=== PATIENT | female | born 1970 | race American Indian/Alaskan Native ===

== ENCOUNTER 2019-05-12 17:00 | Emergency (ER) | payer SELFPAY ==
--- NOTE | 2019-05-12 18:25 | XRay Report ---
CHEST PA AND LATERAL VIEWS INDICATION: Chest Pain. COMPARISON: None FINDINGS: Support devices: None Heart: Slightly enlarged with left ventricular configuration. Lungs/Pleura: No pulmonary edema or acute disease. No pleural fluid. IMPRESSION: 1. Mild cardiomegaly but no pulmonary edema or acute pulmonary disease. Signer Name: Quinn Mcbride MD Signed: 05/12/2019 6:21 PM Workstation Name: [id number]
[2019-05-12 18:29] LABS: Basophils % (Auto) 0.8 % (0.0-1.8); Eosinophils # (Auto) 0.1 K/mm3 (0.0-0.4); Eosinophils % (Auto) 1.9 % (0.0-4.3); Hematocrit 37.3 % (30.3-42.9); Hemoglobin 12.6 gm/dl (10.1-14.3); Lymphocytes # (Auto) 2.4 K/mm3 (1.2-5.4); Mean Corpuscular HGB Conc 34 % (30-34); Mean Corpuscular Volume 86 fl (79-97); Monocytes # (Auto) 0.6 K/mm3 (0.0-0.8); Monocytes % (Auto) 9.2 % (0.0-7.3); Platelet Count 288 K/mm3 (140-440); Red Blood Count 4.32 M/mm3 (3.65-5.03); Red Cell Distribution Width 13.7 % (13.2-15.2)
[2019-05-12 18:48] LABS: Alanine Aminotransferase 10 units/L (7-56); Albumin 4.1 g/dL (3.9-5); BUN/Creatinine Ratio 18; Blood Urea Nitrogen 9 mg/dL (7-17); Calcium 9.1 mg/dL (8.4-10.2); Hemolysis Index 14
--- NOTE | 2019-05-12 21:02 | Emergency Department Report ---
ED Chest Pain HPI - General Chief Complaint: Chest Pain Stated Complaint: CHEST PAIN Time Seen by Provider: 05/12/19 20:56 Source: patient Mode of arrival: Ambulatory Limitations: No Limitations - History of Present Illness Initial Comments: Patient is a 48-year-old female that presents emergency room with complaints of chest pain and abdominal pain. Patient states her chest pain started 2 days ago. Patient states the pain is unchanged. Patient states it is in her substernal region and nonradiating. Patient states the pain is an 8 out of 10. Patient states the pain is better with rest and worse with movement. Patient states the pain is unchanged with exertion. Patient denies shortness of breath. Patient denies diaphoresis. Patient also complains of abdominal pain. Patient states she is having right lower quadrant abdominal pain. Patient states the pain is a 10 out of 10. Patient states the pain is worse with movement and palpation. Patient states the pain is better with rest. Patient denies fever and chills. Patient denies nausea vomiting. MD Complaint: chest pain -: Sudden Pain Location: substernal Pain Radiation: none Severity scale (0 -10): 8 Quality: tightness Consistency: constant Improves With: rest Worsens With: movement re: denies: nausea, vomting, diaphoresis, dyspnea, sense of impending doom Other Symptoms: denies: cough, fever, syncope, rash, acid taste in mouth, leg swelling, palpitations, burping Treatments Prior to Arrival: none Aspirin use within the Past 7 Days: (0) No - Related Data On Oral Contraceptives: No Previous Rx's Medication Instructions Recorded Last Taken Type Docusate Sodium [Colace] 100 mg PO BID PRN #20 capsule 05/13/19 Unknown Rx Esomeprazole Magnesium [NexIUM] 40 mg PO QDAY 30 Days #30 05/13/19 Unknown Rx capsule. Allergies Allergy/AdvReac Type Severity Reaction Status Date / Time No Known Allergies Allergy Verified 05/12/19 17:37 Heart Score - HEART Score History: Slightly suspicious EKG: Normal Age: 45-65 Risk factors: No known risk factors Troponin: < normal limit HEART Score: 1 ED Review of Systems ROS: Stated complaint: CHEST PAIN Other details as noted in HPI Constitutional: denies: chills, fever Eyes: denies: eye pain, eye discharge, vision change ENT: denies: ear pain, throat pain Respiratory: denies: cough, shortness of breath, wheezing Cardiovascular: chest pain. denies: palpitations Endocrine: no symptoms reported Gastrointestinal: abdominal pain. denies: nausea, diarrhea Genitourinary: denies: urgency, dysuria, discharge Musculoskeletal: denies: back pain, joint swelling, arthralgia Skin: denies: rash, lesions Neurological: denies: headache, weakness, paresthesias Psychiatric: denies: anxiety, depression Hematological/Lymphatic: denies: easy bleeding, easy bruising ED Past Medical Hx - Past Medical History Previous Medical History?: No - Surgical History Past Surgical History?: No - Family History Family history: no significant - Social History Smoking Status: Never Smoker Substance Use Type: None - Medications Home Medications: Home Medications Medication Instructions Recorded Confirmed Last Taken Type Docusate Sodium [Colace] 100 mg PO BID PRN #20 capsule 05/13/19 Unknown Rx Esomeprazole Magnesium [NexIUM] 40 mg PO QDAY 30 Days #30 05/13/19 Unknown Rx capsule. ED Physical Exam - General Limitations: No Limitations General appearance: alert, in no apparent distress - Head Head exam: Present: atraumatic, normocephalic - Eye Eye exam: Present: normal appearance - ENT ENT exam: Present: mucous membranes moist - Neck Neck exam: Present: normal inspection - Respiratory Respiratory exam: Present: normal lung sounds bilaterally. Absent: respiratory distress - Cardiovascular Cardiovascular Exam: Present: regular rate, normal rhythm. Absent: systolic murmur, diastolic murmur, rubs, gallop - GI/Abdominal GI/Abdominal exam: Present: soft, tenderness (right lower quadrant tenderness), normal bowel sounds. Absent: distended - Extremities Exam Extremities exam: Present: normal inspection - Back Exam Back exam: Present: normal inspection - Neurological Exam Neurological exam: Present: alert, oriented X3 - Psychiatric Psychiatric exam: Present: normal affect, normal mood - Skin Skin exam: Present: warm, dry, intact, normal color. Absent: rash ED Course Vital Signs 05/12/19 17:36 Temperature 98.0 F Pulse Rate 79 Respiratory 16 Rate Blood Pressure 143/89 O2 Sat by Pulse 98 Oximetry - Reevaluation(s) Reevaluation #1: I discussed all results with patient. I discussed plan of care with patient. Patient agrees with plan of care. Patient is stable for discharge. Patient will be discharged home. Patient given discharge instructions. Patient voiced understanding of discharge instructions. 05/13/19 02:01 Reevaluation #2: Patient's information faxed over to local cardiology office for outpatient referral further cardiovascular evaluation and treatment. 05/13/19 02:27 TAM score - Tam Score Age > 65: (0) No Aspirin use within the Past 7 Days: (0) No 3 or more CAD Risk Factors: (0) No 2 or more Angina events in past 24 hrs: (1) Yes Known CAD with more than 50% Stenosis: (0) No Elevated Cardiac Markers: (0) No ST Deviation Greater than 0.5mm: (0) No TAM Score: 1 ED Medical Decision Making - Lab Data Result diagrams: 05/12/19 17:49 05/12/19 17:49 - EKG Data -: EKG Interpreted by Me EKG shows normal: sinus rhythm, axis, intervals, QRS complexes, ST-T waves Rate: normal - Radiology Data Radiology results: report reviewed, image reviewed interpreted by me: No acute findings on chest x-ray. CHEST PA AND LATERAL VIEWS INDICATION: Chest Pain. COMPARISON: None FINDINGS: Support devices: None Heart: Slightly enlarged with left ventricular configuration. Lungs/Pleura: No pulmonary edema or acute disease. No pleural fluid. IMPRESSION: 1. Mild cardiomegaly but no pulmonary edema or acute pulmonary disease. CT ABDOMEN AND PELVIS WITH IV CONTRAST INDICATION: abd pain. RLQ. Right lower quadrant abdominal pain COMPARISON: None available. TECHNIQUE: Axial CT images were obtained through the abdomen and pelvis after 100 mL IV contrast. All CT scans at this location are performed using CT dose reduction for ALARA by means of automated exposure control. FINDINGS -- ABDOMEN: Lung Bases: No acute abnormality. Liver: Normal. Gallbladder: Normal. Bile Ducts: Normal. Pancreas: Normal. Spleen: Normal. Adrenals: Normal. Right Kidney and Proximal Ureter: Normal. Left Kidney and Proximal Ureter: Normal. Stomach and Bowel: Normal. Lymph Nodes: No significant adenopathy. Aorta: No significant abnormality. IVC: Normal. Additional Findings: None. FINDINGS -- PELVIS: Urinary Bladder and Distal Ureters: Normal. Reproductive Organs: Enlarged, fibroid uterus.. Appendix: Not well identified but no inflammatory process is appreciated.. Bowel: Sigmoid diverticulosis without diverticulitis. Free Fluid: None. Lymph Nodes: No significant adenopathy. Additional Findings: None. Skeletal System: No acute abnormality. IMPRESSION: 1. No acute process in the abdomen or pelvis. Sigmoid diverticulosis without diverticulitis. - Medical Decision Making Patient is a 48-year-old female that presents emergency room with complaints of chest pain, right lower quadrant pain. Patient's abdominal pain secondary to gastritis and constipation. Patient's chest pain appears to be noncardiac. Patient's EKG unremarkable. Patient's labs unremarkable. Patient's chest x-ray negative. Patient referred to a inspector machine cut glass for further outpatient evaluation of her chest pain. Patient referred to a watch manufacturing supervisor for further outpatient evaluation of her gastritis and abdominal pain. - Differential Diagnosis abdominal pain. Gastritis. Chest pain. Constipation. Gastroenteritis Critical care attestation.: If time is entered above; I have spent that time in minutes in the direct care o f this critically ill patient, excluding procedure time. ED Disposition Clinical Impression: Constipation Qualifiers: Constipation type: unspecified constipation type Qualified Code(s): K59.00 - Constipation, unspecified Abdominal pain Qualifiers: Abdominal location: right lower quadrant Qualified Code(s): R10.31 - Right lower quadrant pain Chest pain Qualifiers: Chest pain type: unspecified Qualified Code(s): R07.9 - Chest pain, unspecified Gastritis Qualifiers: Gastritis type: unspecified gastritis Chronicity: acute Gastritis bleeding: without bleeding Qualified Code(s): K29.00 - Acute gastritis without bleeding Disposition: DC- TO HOME OR SELFCARE Is pt being admited?: No Does the pt Need Aspirin: No Condition: Stable Instructions: Chest Pain (ED), Gastritis (ED), Diet for Ulcers and Gastritis (ED), High Fiber Diet (ED), Constipation (ED), Acute Abdominal Pain (ED) Additional Instructions: Patient to follow-up with primary care in 2-3 days. Patient to follow-up with watch manufacturing supervisor In 2-3 days. Patient to follow-up with inspector machine cut glass in 2-3 days. Patient to avoid strenuous exercise until cleared by inspector machine cut glass. Patient to return to ER if condition worsens. Patient to rest. Patient to increase water. Patient to take meds as directed. Patient's take Tylenol when necessary for pain. Prescriptions: Docusate Sodium [Colace] 100 mg PO BID PRN #20 capsule PRN Reason: Constipation Esomeprazole Magnesium [NexIUM] 40 mg PO QDAY 30 Days #30 capsule.dr Referrals: PRIMARY CARE, [Primary Care Provider] - 2-3 Days SONDRA SAHNI MD [Staff Physician] - 2-3 Days SHEELA ONEAL MD [Staff Physician] - 2-3 Days Time of Disposition: 02:08
[2019-05-12] MEDS ORDERED: NACL 0.9% 1000 ML 1,000 ML ONE (22:40)
--- NOTE | 2019-05-13 01:03 | Cat Scan Report ---
CT ABDOMEN AND PELVIS WITH IV CONTRAST INDICATION: abd pain. RLQ. Right lower quadrant abdominal pain COMPARISON: None available. TECHNIQUE: Axial CT images were obtained through the abdomen and pelvis after 100 mL IV contrast. All CT scans a t this location are performed using CT dose reduction for ALARA by means of automated exposure contro l. FINDINGS -- ABDOMEN: Lung Bases: No acute abnormality. Liver: Normal. Gallbladder: Normal. Bile Ducts: Normal. Pancreas: Normal. Spleen: Normal. Adrenals: Normal. Right Kidney and Proximal Ureter: Normal. Left Kidney and Proximal Ureter: Normal. Stomach and Bowel: Normal. Lymph Nodes: No significant adenopathy. Aorta: No significant abnormality. IVC: Normal. Additional Findings: None. FINDINGS -- PELVIS: Urinary Bladder and Distal Ureters: Normal. Reproductive Organs: Enlarged, fibroid uterus.. Appendix: Not well identified but no inflammatory process is appreciated.. Bowel: Sigmoid diverticul osis without diverticulitis. Free Fluid: None. Lymph Nodes: No significant adenopathy. Additional Findings: None. Skeletal System: No acute abnormality. IMPRESSION: 1. No acute process in the abdomen or pelvis. Sigmoid diverticulosis without diverticulitis. Signer Name: Carlos Diaz MD Signed: 05/13/2019 12:59 AM Workstation Name: [id number]
[2019-05-13 02:47] VITALS: BP 143/88
== END 2019-05-13 02:40 | disposition home or self-care (01) ==
LOC: ED 17:00
DX: K29.00 Acute gastritis without bleeding (principal); R07.89 Other chest pain
CPT/HCPCS: 36415; 71046; 74177; 80053; 84484; 84703; 85025; 99284; J7030; Q9967; 93005; 93010